=== PATIENT | female | born 1975 | race Caucasian/White ===

== ENCOUNTER 2016-11-11 10:43 | Emergency (ER) | payer BC ==
[~2016-11-11] VITALS: Ht 175.3 cm; Wt 130.4 kg
[~2016-11-11 10:43] MED LIST: MULT-506 PO
[2016-11-11 10:45] VITALS: TEMP 37.2; Ht 175.3 cm; Wt 130.4 kg
[2016-11-11] MEDS ORDERED: ONDANSETRON INJ 2 MG/ML 2 ML VIAL IV STA ×2 (11:08→13:52)
[2016-11-11] MEDS ORDERED: SODIUM CHLORIDE 0.9% 1000ML 2,000 ML IV STA (11:08)
[2016-11-11 11:38] LABS: BASO % 0.1 %; BASO ABS # 0.02 K/uL (0-0.2); COMPLETE YES; EOS % 0.1 %; HEMATOCRIT 40.2 % (37-47); IG% 0.2 %; LYMPH % 8.9 %; LYMPH ABS # 1.23 K/uL (1.2-3.4); MEAN CELL VOLUME 80.1 fL (80-100); MEAN CORPUSCULAR HEMOGLOBIN 26.5 pg (25-34); MEAN CORPUSCULAR HGB CONC 33.1 g/dl (32-36); MONO % 6.5 %; NEUT % 84.2 %; PLATELET COUNT 278 K/uL (130-400); RED BLOOD COUNT 5.02 M/uL (4.2-5.4); WHITE BLOOD COUNT 13.82 K/uL (4.8-10.8)
[2016-11-11 11:57] LABS: BUN/CREATININE RATIO 9.5 (10-20); CALCIUM 8.4 mg/dl (8.5-10.1); CREATININE 0.76 mg/dl (0.60-1.20); POTASSIUM 4.2 mmol/L (3.5-5.1)
[2016-11-11 12:00] LABS: ALB/GLOB RATIO 0.9 (0.9-2)
[2016-11-11 12:01] LABS: PREG INTERNAL NEGATIVE QC NEG CLEAR BACKGROUND; PREG INTERNAL POSITIVE QC POS CONTROL LINE
[2016-11-11] MEDS ORDERED: ONDA4TAB10 SL (14:51)
--- NOTE | 2016-11-11 14:53 | EMERGENCY ROOM VISIT NOTE ---
ED Visit Note First contact with patient: 10:52 CHIEF COMPLAINT: Nausea, diarrhea 1 day HISTORY OF PRESENT ILLNESS: Patient is a 40-year-old female with no significant past medical history who presents to emergency department for evaluation of diarrhea. She states her symptoms started yesterday morning. It woke her from sleep around 5 AM. She reports roughly 10-15 loose, watery bowel movements yesterday, she reports that they're brown, no blood or melena. She does report that she did try to eat and drink yesterday but everything she ate "went right through her." She was slightly nauseous yesterday which continued today, and today she may feel dizzy and weak with position changes, primarily standing. She has not had any vomiting. She subjectively felt feverish and had chills, reported that her temperature was around 100F orally this morning. She has not taken any medication. She reports mild crampy lower abdominal pain that she rates a 7/10. Pain gets better after a bowel movement, but then returns. She denies any chest pain, palpitations or shortness of breath. No urinary symptoms. Last menstrual period was 3.5 weeks ago. She denies any recent antibiotic use, unusual food or water consumption or foreign travel. She denies any sick contacts. REVIEW OF SYSTEMS: Review of systems as per HPI. All other systems reviewed were negative. 10 systems reviewed. PMH: Electronic medical records are reviewed and summarized as above/below. See Problem List. SOCIAL HISTORY: Patient lives at home. Works in [employer]. Denies tobacco or alcohol use. PHYSICAL EXAM: Vital Signs: Reviewed Nurse's notes. CONSTITUTIONAL: Patient is an uncomfortable-appearing 40-year-old white female who is awake and alert and in mild distress due to her stated complaint. EYES: Pupils equal, round, reactive to light and accommodation. EOMs intact without nystagmus. Sclera are anicteric. ENT: Tympanic membranes intact, with normal landmarks. External canals are clear. Oral and nasopharynx are clear. Mucous membranes are moist, no lesions , tongue and gums appear normal. NECK: No bruits auscultated. Supple without lymphadenopathy. No thyromegaly. No meningeal signs. Full active range of motion without discomfort. CARDIOVASCULAR: Tachycardic rate and rhythm, with normal S1 and S2, no murmur or gallop or rub is heard. No carotid bruits auscultated. No JVD. Peripheral pulses easily palpable. RESPIRATORY: Breath sounds equal and clear to auscultation without wheezes, rales, or rhonchi heard. Full and equal chest expansion without accessory muscle use or retractions. ABDOMEN: Bowel sounds are present. Abdomen is soft, nondistended, mildly tender to palpation throughout the lower abdomen without guarding, rebound or rigidity. There is no pain in the right lower quadrant over McBurney's point. No pain in the right upper quadrant. INTEGUMENTARY: No lesions or rash, normal skin turgor. LYMPH: No lymphadenopathy. EMERGENCY DEPARTMENT COURSE: The patient was seen and evaluated as above. IV lock was initiated. Laboratory studies were collected CBC with differential, CMP, lipase and serum hCG. Urine sample was collected and dipped and was unremarkable. The patient was able to provide a stool sample which was Hemoccult positive. Stool was sent for culture which is pending, and C. difficile which was negative. Laboratory studies did demonstrate a slightly elevated white count 13,800, likely related to the stress of the illness. She does not have any significant, correctable electrolyte abnormalities. Renal function is normal. Transaminases are not elevated. Lipase is not indicative of acute pancreatitis. The patient was reassessed frequently. She reported 3 episodes of diarrhea during her emergency department stay. She was given Zofran 4 mg IV for nausea, and did feel slightly improved and tolerated oral fluids. Supportive care measures were discussed. Her abdominal exam is benign at this time. I suspect she has a likely viral enteritis. Differential diagnoses also entertained included infectious versus inflammatory colitis, food borne illness, bowel obstruction, perforation, UTI, pyelonephritis, appendicitis, cholecystitis, cholelithiasis, among others. The patient did remain slightly tachycardic, but improved with the IV fluids. She felt well enough to be discharged to home with Zofran, and supportive care. She was educated on the worrisome signs or symptoms for which she should return to the emergency department. Blood pressure screening : Patient was found to have normal blood pressure on screening and does not require follow-up. Medication reconciliation: I attest that I have personally reviewed the patient' s current medication list. Problem List Surgical Problems: (1) History of knee surgery Status: Resolved Current/Historical Medications Scheduled PRN Ondasetron Odt (Zofran Odt), 4 MG SL Q6H PRN for Nausea or Vomiting Allergies Coded Allergies: Latex1 -Allergic Contact Dermititis (Unverified Allergy, Mild, 11/13/06) Vital Signs Date Time Temp Pulse Resp B/P (MAP) Pulse Ox O2 Delivery O2 Flow Rate FiO2 11/11/16 15:19 103 18 137/87 100 11/11/16 14:55 103 18 137/87 100 Room Air 11/11/16 12:39 105 18 107/74 100 Room Air 11/11/16 10:45 37.2 129 16 163/113 97 Room Air Laboratory Results 11/11/16 11:26 Red Blood Count 5.02, Mean Corpuscular Volume 80.1, Mean Corpuscular Hemoglobin 26.5, Mean Corpuscular Hemoglobin Concent 33.1, Mean Platelet Volume 10.0, Neutrophils (%) (Auto) 84.2, Lymphocytes (%) (Auto) 8.9, Monocytes (%) (Auto) 6.5, Eosinophils (%) (Auto) 0.1, Basophils (%) (Auto) 0.1, Neutrophils # (Auto) 11.62, Lymphocytes # (Auto) 1.23, Monocytes # (Auto) 0.90, Eosinophils # (Auto) 0.02, Basophils # (Auto) 0.02 11/11/16 11:26 Test 11/11/16 11:26 White Blood Count 13.82 K/uL (4.8-10.8) Red Blood Count 5.02 M/uL (4.2-5.4) Hemoglobin 13.3 g/dL (12.0-16.0) Hematocrit 40.2 % (37-47) Mean Corpuscular Volume 80.1 fL (80-100) Mean Corpuscular Hemoglobin 26.5 pg (25-34) Mean Corpuscular Hemoglobin Concent 33.1 g/dl (32-36) Platelet Count 278 K/uL (130-400) Mean Platelet Volume 10.0 fL (7.4-10.4) Neutrophils (%) (Auto) 84.2 % Lymphocytes (%) (Auto) 8.9 % Monocytes (%) (Auto) 6.5 % Eosinophils (%) (Auto) 0.1 % Basophils (%) (Auto) 0.1 % Neutrophils # (Auto) 11.62 K/uL (1.4-6.5) Lymphocytes # (Auto) 1.23 K/uL (1.2-3.4) Monocytes # (Auto) 0.90 K/uL (0.11-0.59) Eosinophils # (Auto) 0.02 K/uL (0-0.5) Basophils # (Auto) 0.02 K/uL (0-0.2) RDW Standard Deviation 39.4 fL (36.4-46.3) RDW Coefficient of Variation 13.6 % (11.5-14.5) Immature Granulocyte % (Auto) 0.2 % Immature Granulocyte # (Auto) 0.03 K/uL (0.00-0.02) Anion Gap 6.0 mmol/L (3-11) Est Creatinine Clear Calc Drug Dose 144.2 ml/min Estimated GFR () 114.5 Estimated GFR (Non- 98.8 BUN/Creatinine Ratio 9.5 (10-20) Calcium Level 8.4 mg/dl (8.5-10.1) Total Bilirubin 0.4 mg/dl (0.2-1) Aspartate Amino Transf (AST/SGOT) 18 U/L (15-37) Alanine Aminotransferase (ALT/SGPT) 30 U/L (12-78) Alkaline Phosphatase 99 U/L (45-117) Total Protein 7.4 gm/dl (6.4-8.2) Albumin 3.5 gm/dl (3.4-5.0) Globulin 3.9 gm/dl (2.5-4.0) Albumin/Globulin Ratio 0.9 (0.9-2) Lipase 169 U/L (73-393) Human Chorionic Gonadotropin, Qual NEG (NEG) Medications Administered Medications (Trade) Dose Ordered Sig/Dianne Route Start Time Stop Time Status Last Admin Dose Admin Sodium Chloride 2,000 ml @ 999 mls/hr Q2H1M STAT IV 11/11/16 11:08 11/11/16 13:08 DC 11/11/16 11:28 999 MLS/HR Ondansetron HCl (Zofran Inj) 4 mg NOW STAT IV 11/11/16 13:52 11/11/16 13:53 DC 11/11/16 13:59 4 MG Departure Information Impression Primary Impression: Diarrhea Prescriptions Ondasetron Odt (ZOFRAN ODT) 4 Mg Tab 4 MG SL Q6H Y for Nausea or Vomiting, #20 TAB Prov: Angie Bynum PA 11/11/16 Referrals Jean Marie Gomez M.D. (PCP) Patient Instructions My [facility] Additional Instructions Zofran(odansetron) tablets 4mg: Take one and allow it to dissolve in your mouth every four to six hours as needed for nausea or vomiting. Ibuprofen(Motrin, Advil) may be used for fever or pain. Use 600mg every six hours as needed. Take with food. Avoid using more than 2400mg in a 24 hour period. Do not use 2400mg per day for more than three consecutive days without physician direction. Prolonged inappropriate use can lead to stomach upset or ulcers. (AND/OR) Acetaminophen(Tylenol) may be used for fever or pain. Use 1000mg every six hours as needed. Avoid using more than 4000mg in a 24 hour period. Rest and drink plenty of fluids as tolerated. Slow sips of water or sports drinks are recommended instead of large amounts all at once. Continue current medications. Once your stomach is settled start with a clear liquid diet (jello, soup broth, etc.) and then advance as tolerated. You should avoid full, heavy meals for about 24 hrs from the time your symptoms resolved. Avoid dairy products until diarrhea has resolved. Return to the ER for persistent vomiting, fevers, abdominal pain, chest pains, difficulty breathing, black or bloody stools, worsening of your condition, or as needed. Follow up with your primary physician in 2-3 days for a recheck of your current condition.
[2016-11-11 15:19] VITALS: BP 137/87; PULSE 103; O2SAT 100
== END 2016-11-11 15:20 | disposition home or self-care (01) ==
LOC: C.EDB 10:45 → C.EDC 15:20
DX: R19.7 Diarrhea, unspecified (principal); R11.0 Nausea